=== PATIENT | female | born 1970 | race Caucasian/White ===

== ENCOUNTER 2021-09-29 00:31 | Day surgery (SDC) | payer OTHER, SELFPAY ==
[2021-09-28 15:48] VITALS: BMI 23.6
--- NOTE | 2021-09-28 16:00 | PC.NURSE ---
Report to the Outpatient Waiting Room, entrance under the green pavilion located off [facility], at time 0600 on date 09/30/21. OR Time: 0730. - You and your visitor will be asked a series of questions to screen for COVID 19 for your protection. - Only one visitor is allowed at this time. - The patient visitor is requested to leave or wait in car when not with patient. - A mask is required within the hospital. Patients may have clear liquids (water, carbonated beverages, clear teas, apple juice) until 3 hours prior to surgery with a maximum of 20 ounces. - No food from midnight until time of surgery Take the following medications with a SIP of water the morning of surgery: SERTRALINE, PAIN PILL (IF NEEDED) Medications to discontinue per physician: N/A Date to take last dose: N/A Please no make-up, nail rwandan, hairspray, perfume, deodorant, or body powder the day of surgery. No jewelry (including any body piercings) or valuables the day of surgery, leave them at home. Please take a shower or bath the night before, or the morning of, surgery with an antibacterial soap. Wear comfortable, loose fitting clothing. - Jewelry must be removed prior to entering the operating room. Rings and piercings that are not removed may be cut off. - The hospital will not accept responsibility for valuables. - Please leave all valuables, including medications, at home the day of surgery. If you are going home after surgery, a licensed automobile drivers must drive you home. - NO public transportation without another adult. - We recommend that an adult stay with you for 24 hours following discharge. - We also recommend that you do not drive, make important decision, drink alcoholic beverages, or take any drugs that were not prescribed by your health care provider for at least 24 hours after your discharge time. Follow any additional instructions given to you from your surgeon. If you or anyone in your household have experienced Covid symptoms in the past week, please notify your surgeon or the nurse liaison at the phone number below for possible testing. Telephone instructions given to PT - FITZ MARIEE and asked if any additional questions and then verbalized understanding. Patient advised to call surgeon office or pre surgery nurse liaison [phone] if any additional questions.
--- NOTE | 2021-09-29 08:42 | PM.IMHP ---
H&P: HPI History of Present Illness Date/Time: 09/29/21 08:42 51-year-old 3 para 2011 presents for IUD removal. She has an IUD in place for over 10 years and strings readily seen through the cervix. Attempt to remove in the office is unsuccessful, ultrasound performed to be sure there was no significant displacement and there was not as the IUD is stated to be appropriate placed in the uterus. Due to discomfort procedure in the office was stopped and we will proceed with hysteroscopic removal today. Chief Complaint: Retained IUD Review of Systems Review of Systems: All systems reviewed & are unremarkable except as noted in HPI and below PMFSH Past Medical History Medical History (Updated 09/29/21 @ 08:45 by Edgar Royal MD) Anxiety Chronic pain syndrome Cirrhosis, alcoholic Depression Encounter for IUD removal GERD (gastroesophageal reflux disease) Surgical History Surgical History Delivery by section 1999 History of orthopedic surgery 1990 left ankle surgery Family History Family History Father Carcinoma of colon Mother Hypertension Social History Social History (Updated 09/22/21 @ 11:00 by MINI Kincaid) Smoking packs per day: 1 Smoking cigarettes per day: 20.0 Years smoked: 37 Smoking pack-years: 37.00 Smoking status: Current every day smoker Tobacco type: cigarettes Alcohol intake: former Alcohol use details: LAST USE 2013 Substance use: current Substance use type: marijuana Other substance usage details: daily Living arrangements: with family Additional living arrangements comments: Gender identity (if verbalized by the patient): Female Sexual Orientation (if Verbalized by the Patient): Straight or Heterosexual Spiritual care concerns: No Meds Home Medications and Allergies Home Medications Medication Instructions Recorded Confirmed Type hydrocodone 5 mg-acetaminophen 325 1 tablet PO Q8H PRN Pain 09/22/21 09/28/21 History mg tablet pantoprazole 40 mg tablet,delayed 40 mg PO QAM 09/22/21 09/28/21 History release sertraline 50 mg tablet 100 mg PO DAILY 09/22/21 09/28/21 History budesonide 160 mcg-glycopyr 9 2 inh inhalation BID 09/28/21 09/28/21 History mcg-formot 4.8 mcg/actuation HFA inhaler ([employer]) Allergies Allergy/AdvReac Type Severity Reaction Status Date / Time No Known Allergies Allergy Unverified 09/28/21 15:46 Exam Const: General: cooperative, healthy appearing and comfortable Resp: Effort & Inspection: normal respiratory effort Auscultation: clear to auscultation bilaterally Cardio: Rate: regular rate Rhythm: regular rhythm GI: Inspection: normal to inspection Auscultation: normal bowel sounds : External Female Exam: normal external appearance Speculum Exam - Vagina: normal appearance of the vagina Speculum Exam - Cervix: normal appearance of the cervix ( with IUD string visualized) Bimanual exam- vagina & uterus: normal bimanual exam Bimanual Exam- Adnexa, other: normal adnexae Assessment and Plan Assessment and plan (1) Retained intrauterine contraceptive device (IUD): Code(s): T83.39XA - Other mechanical complication of intrauterine contraceptive device, initial encounter Status: Acute Assessment and Plan: hysteroscopic exam with IUD removal
--- NOTE | 2021-09-29 08:45 | WPDHPUPDATE1 ---
History and Physical Update Update Date/Time: 09/29/21 08:45 History and Physical has been reviewed, including an updated exam of the patient. There are NO changes in the patient's condition. Risks, benefits, and alternatives have been discussed and questions answered. Patient agrees to proceed with procedure.
[2021-09-29 12:46] VITALS: BP 132/77; PULSE 79; RESP 18; TEMP 36.8; O2SAT 98
[2021-09-29] MEDS: LACTATED RINGERS 1,000 ML 30 ML IV CONT (13:15)
[2021-09-29] MEDS: ACETAMINOPHEN 500 MG TABLET 1000 MG PO (13:15)
[2021-09-29 13:31] LABS: Prothrombin Time 12.3 Seconds (11.1-14.7)
[2021-09-29 13:32] LABS: Partial Thromboplastin Time 39.4 SECONDS (22.3-36.8)
[2021-09-29 13:34] LABS: Anion Gap 9 mmol/L (8-16); Blood Urea Nitrogen 10 mg/dL (7-17); Calcium 9.2 mg/dL (8.4-10.2); Carbon Dioxide 22 mmol/L (22-30); Chloride 105 mmol/L (98-107); Estimated CRCL calculation 60 ml/min; Estimated Glomerular Filt Rate > 60; Glucose 91 mg/dL (65-110); Potassium 3.9 mmol/L (3.4-5.0); Sodium 136 mmol/L (137-145)
--- NOTE | 2021-09-29 13:53 | WPDANESEPPF ---
Anes - Initial Pre Proc Eval Procedure: Operation Date: 09/29/21 15:00 Proposed Procedures p Hysteroscopy, Intra Uterine Device Removal - Edgar Royal MD Date/Time: 09/29/21 13:53 Surgeon: Edgar Royal MD Pre Op Diagnosis: misplaced IUD Patient Data Age: 51 Gender: F Height: 1.68 m Weight: 69.5 kg Last Vital Signs Temp 98.2 F 09/29/21 12:46 Pulse 79 09/29/21 12:46 Resp 18 09/29/21 12:46 BP 132/77 09/29/21 12:46 Pulse Ox 98 09/29/21 12:46 O2 Del Method Room Air 09/29/21 12:46 Allergies Allergy/AdvReac Type Severity Reaction Status Date / Time No Known Allergies Allergy Unverified 09/29/21 12:54 Home Medications Medication Instructions Recorded Confirmed Type hydrocodone 5 mg-acetaminophen 325 1 tablet PO Q8H PRN Pain 09/22/21 09/29/21 History mg tablet pantoprazole 40 mg tablet,delayed 40 mg PO QAM 09/22/21 09/29/21 History release sertraline 50 mg tablet 100 mg PO DAILY 09/22/21 09/29/21 History budesonide 160 mcg-glycopyr 9 2 inh inhalation BID 09/28/21 09/29/21 History mcg-formot 4.8 mcg/actuation HFA inhaler ([employer]) Laboratory Tests 09/29/21 09/29/21 13:06 13:06 PT 12.3 Seconds Seconds (11.1-14.7) INR 1.0 APTT 39.4 SECONDS H SECONDS (22.3-36.8) Sodium 136 mmol/L L mmol/L (137-145) Potassium 3.9 mmol/L mmol/L (3.4-5.0) Chloride 105 mmol/L mmol/L (98-107) Carbon Dioxide 22 mmol/L mmol/L (22-30) Anion Gap 9 mmol/L mmol/L (8-16) BUN 10 mg/dL mg/dL (7-17) Creatinine 0.90 mg/dL mg/dL (0.7-1.0) Estim Creat Clear Calc 60 ml/min ml/min Estimated GFR > 60 (59 - ) Glucose 91 mg/dL mg/dL (65-110) Calcium 9.2 mg/dL mg/dL (8.4-10.2) Patient hx anesthesia problems: none Family hx anesthesia problems: none Results Review: All pre-operative results and documents have been reviewed as part of the pre-operative evaluation. [facility] Past Medical History Medical History (Updated 09/29/21 @ 08:45 by Edgar Royal MD) Anxiety Chronic pain syndrome Cirrhosis, alcoholic Depression Encounter for IUD removal GERD (gastroesophageal reflux disease) Surgical History Surgical History Delivery by section 1999 History of orthopedic surgery 1990 left ankle surgery Family History Family History Father Carcinoma of colon Mother Hypertension Social History Social History (Updated 09/22/21 @ 11:00 by MINI Kincaid) Smoking packs per day: 1 Smoking cigarettes per day: 20.0 Years smoked: 37 Smoking pack-years: 37.00 Smoking status: Current every day smoker Tobacco type: cigarettes Alcohol intake: former Alcohol use details: LAST USE 2013 Substance use: current Substance use type: marijuana Other substance usage details: daily Living arrangements: with family Additional living arrangements comments: Gender identity (if verbalized by the patient): Female Sexual Orientation (if Verbalized by the Patient): Straight or Heterosexual Spiritual care concerns: No Anes - Eval Final PreProcedure Day of Procedure 09/29/21 13:53 Patient weight: normal Heart: regular rate and rhythm Lungs: clear to auscultation Airway: Mallampati scale class II Neurological: alert and oriented Last oral intake: >/= 8 hours ASA classification: III Emergent: no Anesthetic plan: proceed Anesthesia type and monitoring: general GIVS and standard monitoring Results Review: All pre-operative results and documents have been reviewed as part of the pre-operative evaluation. Informed Consent: The patient's anesthetic plan and its attendant risks and benefits were discussed with the patient/family/POA. Questions were solicited and answers
--- NOTE | 2021-09-29 14:17 | W.PM.PROC2 ---
Procedure Note - Detailed Date of Procedure 09/29/21 Pre-op Diagnosis misplaced IUD Post-op Diagnosis Same Procedure Performed Hysteroscopy with removal of IUD Surgeon Edgar Royal MD Anesthesia MAC Findings IUD retained in the endometrial cavity Description of Procedure Patient prepped and draped in usual manner for this procedure. Cervix dilated to allow the hysteroscope to be placed. Once this was done the IUD was located in the appropriate position. Polyp forceps were then used to grasp the IUD with removal. Estimated Blood Loss 25 Drains No Packing No Pathology None sent Complications No immediate complications Condition Stable Disposition PACU [facility] Billing Surgery - Charge Forward: Surgery Billing
[2021-09-29 14:30] VITALS: BP 121/77; PULSE 72; RESP 16; O2SAT 100
[2021-09-29] MEDS: fentaNYL CITRATE INJ (*CRX) 100 MCG/2 ML VIAL 25 MCG IV PUSH ×2 (14:32→14:35)
[2021-09-29 15:00] VITALS: BP 139/79; PULSE 59; RESP 16
[2021-09-29] MEDS: oxyCODONE HCL (*CRX) 5 MG TAB IR PO (15:00)
[2021-09-29 15:20] VITALS: BP 131/86; PULSE 66; RESP 16
== END 2021-09-29 15:35 | disposition home or self-care (01) ==
PROVIDERS: Anesthesiology; PCP Internal Medicine; Visit Provider Obstetrics & Gynecology
PROC: 0U5B8ZZ Destruction of Endometrium, Via Natural or Artificial Opening Endoscopic (ICD-10-PCS; CPT 58563; principal; 2021-09-29 15:00)
DX: T83.39XA Other mechanical complication of intrauterine contraceptive device, initial encounter (principal); Y84.8 Other medical procedures as the cause of abnormal reaction of the patient, or of later complication, without mention of misadventure at the time of the procedure; K70.30 Alcoholic cirrhosis of liver without ascites; K21.9 Gastro-esophageal reflux disease without esophagitis; G89.4 Chronic pain syndrome; F32.A Depression, unspecified; F41.9 Anxiety disorder, unspecified; F17.210 Nicotine dependence, cigarettes, uncomplicated; F12.90 Cannabis use, unspecified, uncomplicated; Z79.891 Long term (current) use of opiate analgesic; Z79.51 Long term (current) use of inhaled steroids
CPT/HCPCS: 58562; 36415; 80048; 85610; 85730; A9270; J2250; J2704; J3010; J7030; J7120

== ENCOUNTER 2022-08-04 09:55 | Outpatient (CLI) | payer OTHER, SELFPAY | END 2022-08-04 09:56 | disposition home or self-care (01) | LOC: ANHAUDIO 09:56 | PROVIDERS: PCP Internal Medicine; Visit Provider Otolaryngology | DX: H93.19 Tinnitus, unspecified ear (principal) | CPT/HCPCS: 92557; 92567 ==

== ENCOUNTER 2024-01-10 12:38 | Outpatient (CLI) | payer OTHER, SELFPAY ==
--- NOTE | 2024-01-10 14:25 | NEURO_ITS ---
Impression: # Complains of paresthesia of lower extremities. # Normal motor/sensory Nerve Conduction Study. # Normal needle/EMG exam. # Clinical correlation recommended. Nerve Conduction Studies Anti Sensory Summary Table Stim Site NR Peak (ms) P-T Amp (?V) Site1 Site2 Delta-P (ms) Dist (cm) Javy (m/s) Left Sup Fibular Anti Sensory (Ant Lat Mall) 14 cm 3.2 6.2 14 cm Ant Lat Mall 3.2 16.0 50 Right Sup Fibular Anti Sensory (Ant Lat Mall) 14 cm 3.2 10.1 14 cm Ant Lat Mall 3.2 16.0 50 Left Sural Anti Sensory (Lat Mall) Calf 3.7 4.5 Calf Lat Mall 3.7 16.0 43 Right Sural Anti Sensory (Lat Mall) Calf 3.5 8.8 Calf Lat Mall 3.5 16.0 46 Motor Summary Table Stim Site NR Onset (ms) O-P Amp (mV) Site1 Site2 Delta-0 (ms) Dist (cm) Javy (m/s) Left Peroneal Motor (Vastus Med) Ankle 3.4 3.1 Popit Ankle 9.2 43.0 47 Popit 12.6 2.0 Right Peroneal Motor (Vastus Med) Ankle 3.4 3.7 Popit Ankle 8.6 43.0 50 Popit 12.0 2.8 Left Tibial Motor (Abd Rojo Brev) Ankle 3.9 3.7 Knee Ankle 8.4 40.0 48 Knee 12.3 2.5 Right Tibial Motor (Abd Rojo Brev) Ankle 4.0 8.8 Knee Ankle 8.4 40.0 48 Knee 12.4 5.8 F Wave Studies NR F-Lat (ms) L-R F-Lat (ms) Left Peroneal (Mrkrs) (EDB) 50.97 0.34 Right Peroneal (Mrkrs) (EDB) 50.63 0.34 Left Tibial (Mrkrs) (Abd Hallucis) 50.89 0.83 Right Tibial (Mrkrs) (Abd Hallucis) 51.72 0.83 EMG Side Muscle Nerve Root Ins Act Fibs Amp Dur Recrt Comment Right AntTibialis Dp Br Fibular L4-5 Nml Nml Nml Nml Nml Right Gastroc Tibial S1-2 Nml Nml Nml Nml Nml Right Fibularis Long Sup Br Fibular L5-S1 Nml Nml Nml Nml Nml Right Flex Dig Long Tibial L5-S2 Nml Nml Nml Nml Nml Right Ext Dig Brev Dp Br Fibular L5, S1 Nml Nml Nml Nml Nml Right QuadratusFem QuadFemoris L4-5, S1 Nml Nml Nml Nml Nml Left AntTibialis Dp Br Fibular L4-5 Nml Nml Nml Nml Nml Left Gastroc Tibial S1-2 Nml Nml Nml Nml Nml Left Fibularis Long Sup Br Fibular L5-S1 Nml Nml Nml Nml Nml Left Flex Dig Long Tibial L5-S2 Nml Nml Nml Nml Nml Left Ext Dig Brev Dp Br Fibular L5, S1 Nml Nml Nml Nml Nml Left QuadratusFem QuadFemoris L4-5, S1 Nml Nml Nml Nml Nml MTDD
== END 2024-01-10 12:39 | disposition home or self-care (01) ==
LOC: ANHNEURO 12:38
PROVIDERS: PCP Internal Medicine; Visit Provider Internal Medicine
DX: G62.9 Polyneuropathy, unspecified (principal)
CPT/HCPCS: 95886; 95910